=== PATIENT | female | born 1965 | race Caucasian/White ===

== ENCOUNTER 2016-11-06 13:45 | Emergency (ER) | payer OTHER ==
[2016-11-06 13:58] VITALS: BP 110/76; PULSE 76; RESP 18; TEMP 98; O2SAT 97
--- NOTE | 2016-11-06 14:08 | EDPHY ---
H & P Time Seen by Provider: 11/06/16 14:05 HPI/ROS: CHIEF COMPLAINT: Fall HISTORY OF PRESENT ILLNESS: Patient is a 49-year-old female who presents emergency department after having a mechanical fall while at work. The patient states she slipped on the wet floor. She landed straight down on her buttocks. She now complains of right lower lateral back pain and right groin pain. Pain is 5/10. She is able to ambulate. She rode her bike to the emergency department. She did not strike her head or lose consciousness. She denies any neck or midline back pain. No weakness or numbness. No incontinence. Patient states she had mild discomfort in the right hip and right lower back prior to the fall. She feels this exacerbated her symptoms. REVIEW OF SYSTEMS: My complete review of systems is negative except as mentioned in the HPI. Past Medical/Surgical History: Includes history of alcoholism Social history: Patient does not smoke. She does not use alcohol. Smoking Status: Never smoked Physical Exam: Vitals noted GENERAL: Well-appearing, in no acute distress, alert. HEAD: No evidence of trauma. EYES: PERRLA, EOMI, normal to inspection. ENT: Airway intact, normal external examination. NECK: The trachea is midline. The C-spine is nontender. NEXUS criteria is negative (no midline tenderness, no distracting injury, no altered mental status , no recent alcohol use, no focal neurologic deficit). RESPIRATORY: Clear to auscultation bilaterally, no rales, rhonchi or wheezing. CVS: Regular rate and rhythm, no rubs, murmurs, or gallops. ABDOMEN: Soft, nontender. Pelvis: Stable. No tenderness palpation. Hips full range of motion. BACK: Normal to inspection, no spinal tenderness, no spinal step off, no notable bruising or abrasions. SKIN: Normal color, warm, dry. No pallor or diaphoresis. EXTREMITIES: Right upper extremity: Atraumatic. No visible signs of trauma. No tenderness palpation. Neurovascular intact distally. Left upper extremity: Atraumatic. No visible signs of trauma. No tenderness palpation. Neurovascular intact distally. Right lower extremity: Atraumatic. No visible signs of trauma. No tenderness palpation. Neurovascular intact distally. Left lower extremity: Atraumatic. No visible signs of trauma. No tenderness palpation. Neurovascular intact distally. NEURO/PSYCH: Alert and oriented x 3, GCS 15, normal mood and affect, normal motor sensory exam. Constitutional: Initial Vital Signs Temperature (C) 36.6 C 11/06/16 13:55 Heart Rate 76 11/06/16 13:55 Respiratory Rate 18 11/06/16 13:55 Blood Pressure 110/76 11/06/16 13:55 O2 Sat (%) 97 11/06/16 13:55 O2 Delivery Mode Room Air Allergies/Adverse Reactions: Sulfa (Sulfonamide Antibiotics) Allergy (Verified 11/06/16 13:55) Home Medications: Medication Instructions Recorded Cyclobenzaprine [Flexeril] 10 mg PO TID #9 tab 11/06/16 Medical Decision Making ED Course/Re-evaluation: In the emergency department I discussed possible etiologies with the patient. I found tenderness or signs of trauma on her physical exam. I do not feel she needs imaging at this time. I discussed this with the patient. The patient was given ibuprofen. She will be given a prescription for Flexeril. Patient was given warnings prior to leaving. She will returning symptoms. Differential Diagnosis: My differential includes but is not limited to contusion, sprain, strain, cauda equina syndrome, fracture Departure - Departure Disposition: Home, Routine, Self-Care Clinical Impression: Right hip pain Fall Qualifiers: Encounter type: initial encounter Qualified Code(s): W19.XXXA - Unspecified fall, initial encounter Condition: Good Instructions: Fall Prevention (ED), Contusion in Adults (ED) Additional Instructions: Return with increasing pain, weakness, numbness, incontinence of urine or stool , or any other concerns. Referrals: Mariah John [Primary Care Provider] - 2-3 days, if not improved Work Comp [place] [facility] [place] 5-7 days, if not improved Prescriptions: Cyclobenzaprine [Flexeril] 10 mg PO TID #9 tab
[2016-11-06] MEDS ORDERED: IBUPROFEN 600 MG TAB PO ONE (14:09)
== END 2016-11-06 14:25 | disposition home or self-care (01) ==
LOC: CED 13:45
DX: S79.911A Unspecified injury of right hip, initial encounter (principal); W01.0XXA Fall on same level from slipping, tripping and stumbling without subsequent striking against object, initial encounter; Y92.69 Other specified industrial and construction area as the place of occurrence of the external cause; Y99.0 Civilian activity done for income or pay; Y93.89 Activity, other specified